=== PATIENT | female | born 2000 | race Caucasian/White ===

== ENCOUNTER 2020-06-11 16:45 | Emergency (ER) | payer OTHER, SELFPAY ==
--- NOTE | 2020-06-11 | CT_ITS ---
EXAMINATION: CT HEAD WITHOUT CONTRAST CT CERVICAL SPINE WITHOUT CONTRAST CLINICAL INFORMATION: Headache. Midline tenderness. Chronic lactic acidosis. Mitochondrial disorder. COMPARISON: Brain MRI from 03/10/2020. TECHNIQUE: Contiguous axial imaging was performed from the skull base to vertex without intravenous administration of contrast. Contiguous axial imaging was performed from the upper chest through the skull base without intravenous administration of contrast. Coronal and sagittal reformats were obtained at the acquisition workstation. This CT examination was performed using dose optimization techniques as appropriate, variously including the following: *Automated exposure control. *Adjustment of mA and/or kV according to patient size (this includes techniques or standardized protocols for targeted exams where dose is matched to indication/reason for exam; i.e. extremities or head). *Use of iterative reconstruction technique. DLP: 986 mGy-cm FINDINGS: Head: There is no evidence of acute intracranial hemorrhage or edematous territorial infarction. Hazy increased attenuation of the left greater than right caudate heads and bodies. There is also left greater than right mineralization of the lentiform nuclei. There is no abnormal attenuation within the brain parenchyma. Wright-white matter differentiation is preserved. The ventricles are normal in size and configuration. No evidence for obstructive hydrocephalus. No abnormal mass effect or midline shift. The cerebellar tonsils are normally positioned. No extra-axial fluid collections. No acute soft tissue or osseous abnormalities. Mild mucosal thickening of the paranasal sinuses. The mastoid air cells and middle ear cavities are clear. Cervical Spine: The atlantooccipital and atlantoaxial articulations remain well aligned. Minimal reversal the normal cervical lordosis centered on C3-C4. Otherwise, there is anatomic alignment of the vertebral bodies and posterior elements. No evidence of acute fracture or subluxation. The vertebral body heights and disc spaces are maintained. There is no prevertebral soft tissue swelling. Multiple heterogeneous thyroid nodules, measuring up to 0.8 cm in size. The Remaining cervical soft tissues are normal in appearance. The lung apices demonstrate no abnormalities. IMPRESSION: 1. No evidence of acute intracranial hemorrhage or edematous territorial infarction. 2. Hazy mineralization of the left greater than right basal ganglia. This finding may be seen in the setting of the patient's reported underlying mitochondrial disorder and lactic acidosis. 3. No evidence of acute fracture or traumatic subluxation of the cervical spine. 4. Multiple nonspecific subcentimeter thyroid nodules. Recommend correlation with thyroid function testing and/or dedicated thyroid ultrasound if clinically indicated.
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
[2020-06-11 17:26] VITALS: BP 123/94; PULSE 102; RESP 20; TEMP 36.9; BMI 23.4
[2020-06-11] MEDS: Ibuprofen 600 MG TABLET PO (17:33)
== END 2020-06-11 19:39 | disposition home or self-care (01) ==
PROVIDERS: Emergency Provider Emergency Medicine
DX: S16.1XXA Strain of muscle, fascia and tendon at neck level, initial encounter (principal); S13.4XXA Sprain of ligaments of cervical spine, initial encounter; M54.2 Cervicalgia; M54.5 Low back pain; V43.52XA Car driver injured in collision with other type car in traffic accident, initial encounter; Y93.9 Activity, unspecified; Y92.410 Unspecified street and highway as the place of occurrence of the external cause
CPT/HCPCS: 70450; 72125; 99284